=== PATIENT | male | born 1930 | race Two or more races ===

== ENCOUNTER 2022-06-25 19:19 | Inpatient (IN) | payer MEDICARE, OTHER ==
[~2022-06-25] VITALS: Ht 170.2 cm; Wt 75.7 kg
[2022-06-25] MEDS ORDERED: CEFTRIAXONE 1 G in IV DEXTROSE 5% 50 ML IV ONE (19:45)
[2022-06-25] MEDS ORDERED: VANCOMYCIN IV 1,000 MG in IV DEXTROSE 5% 250 ML IV ONE (19:45)
[2022-06-25] MEDS ORDERED: IV NORMAL SALINE 1000 ML BAG IV ONE (19:45)
[2022-06-25 20:17] LABS: MEAN CORPUSCULAR VOLUME 87.8 fL (73.0-96.2); PLATELET COUNT (AUTO) 113 K/uL (152-348)
[2022-06-25 20:26] LABS: CARBON DIOXIDE 26 mmol/L (21-32); CHLORIDE 102 mmol/L (98-107); CREATININE 0.6 mg/dL (0.6-1.3); GLUCOSE 196 mg/dL (74-106); POTASSIUM 3.1 mmol/L (3.5-5.1); UREA NITROGEN, BLOOD 20 mg/dL (7-18)
[2022-06-25] MEDS ORDERED: MERO500P IV (20:30)
[2022-06-25] MEDS ORDERED: ACET-2154 PO (20:30)
[2022-06-25] MEDS ORDERED: TRAZ-257 PO (20:30)
[2022-06-25] MEDS ORDERED: MULT-213 PO (20:30)
[2022-06-25] MEDS ORDERED: CALC500T52 PO (20:30)
[2022-06-25] MEDS ORDERED: FERR325T24 PO (20:30)
[2022-06-25] MEDS ORDERED: CHOL400T28 PO (20:30)
[2022-06-25] MEDS ORDERED: ESCI20TA44 PO (20:30)
[2022-06-25] MEDS ORDERED: BISA10SU61 RC (20:30)
[2022-06-25] MEDS ORDERED: CLON0.1T PO (20:30)
[2022-06-25] MEDS ORDERED: DONE5TAB7 PO (20:30)
[2022-06-25] MEDS ORDERED: MAGN400O6 PO (20:30)
[2022-06-25] MEDS ORDERED: BUSP10TA3 PO (20:30)
[2022-06-25] MEDS ORDERED: NA P133E RC (20:30)
[2022-06-25 20:42] LABS: ALANINE AMINOTRANSFERASE 41 U/L (16-63); ALKALINE PHOSPHATASE 558 U/L (50-136); ASPARTATE AMINOTRANSFERASE 96 U/L (15-37); BILIRUBIN,DIRECT 0.3 mg/dL (0.0-0.2); BILIRUBIN,TOTAL 0.6 mg/dL (0.2-1.0)
[2022-06-25] MEDS ORDERED: CEFTRIAXONE /D5W 50ML IVPB **ER PYXIS IV ONE (20:48)
[2022-06-25] MEDS ORDERED: VANCOMYCIN IV 200 ML ONE (20:48)
[2022-06-25] MEDS ORDERED: POTASSIUM CHLORIDE 200 ML ONE (20:52)
[2022-06-25] MEDS ORDERED: MAGNESIUM SULFATE/D5W 200 ML ONE (20:53)
[2022-06-25 21:09] LABS: THYROID STIMULATING HORMONE 5.386 mIU/mL (0.358-3.740)
[2022-06-25] MEDS: POTASSIUM CHLORIDE 50 ML IV SCH ×4 (21:16→23:45)
[2022-06-25] MEDS: MAGNESIUM SULFATE/D5W 100 ML IV SCH ×2 (21:16→21:45)
[2022-06-25 21:33] LABS: MAGNESIUM 1.8 mg/dL (1.8-2.4)
[2022-06-25] MEDS ORDERED: ENOXAPARIN SODIUM 80 MG/0.8 ML DISP.SYRIN SQ ONE (22:00)
[2022-06-25 22:13] LABS: *BILIRUBIN,URIN 1+ (NEGATIVE); *BLOOD, URINE 2+ (NEGATIVE); *CLARITY,URINE CLEAR (CLEAR); *COLOR,URINE DARK YELLOW (YELLOW); *KETONES,URINE NEGATIVE (NEGATIVE); LEUKOCYTE ESTERASE ,URINE NEGATIVE (NEGATIVE); NITRITE, URINE NEGATIVE (NEGATIVE); PH,URINE 5.5 (5.0-8.0); UGLUCOSE NEGATIVE (NEGATIVE)
[2022-06-25] MEDS ORDERED: DILTIAZEM HCL 25 MG IV IV ONE (23:15)
[2022-06-26] VITALS (9 sets, daily range): BP systolic 112–138; BP diastolic 66–80
[2022-06-26] MEDS ORDERED: ENOXAPARIN SODIUM 80 MG/0.8 ML DISP.SYRIN SQ ONE (00:11)
[2022-06-26] MEDS ORDERED: DILTIAZEM HCL 25 MG IV ONE (00:13)
[2022-06-26 00:43] LABS: BACTERIA,URINE FEW /HPF (NONE SEEN); WBC,URINE NONE SEEN /HPF (0-3)
[2022-06-26 00:44] LABS: CALCIUM OXALATE CRYSTALS,UR MODERATE /HPF (NONE SEEN); SQUAMOUS EPITHELIAL CELL,UR FEW /HPF (NONE SEEN)
[2022-06-26 00:45] LABS: COARSE GRANULAR CASTS,URINE FEW /LPF
[2022-06-26] MEDS ORDERED: IV NS 1000 ML 1,000 ML IV PRN (00:45)
[2022-06-26] MEDS ORDERED: MAGNESIUM HYDROXIDE 30 ML LIQUID UDC PO PRN (01:00)
[2022-06-26] MEDS ORDERED: BISACODYL 10 MG SUPP.RECT RC PRN (01:15)
[2022-06-26] MEDS ORDERED: DONEPEZIL 5 MG TABLET PO ONE (01:30)
[2022-06-26] MEDS ORDERED: PIPERACILLIN/TAZOBACTAM/D5W 50 ML IV ONE (02:53)
[2022-06-26] MEDS ORDERED: REMEDY ESSENTIAL ZINC PASTE 113 GM TOP PRN (03:15)
[2022-06-26] MEDS ORDERED: PIPERACILLIN SODIUM/TAZOBACTAM 3.375 G in IV DEXTROSE 5% 50 ML IV SCH ×2 (06:00→14:00)
[2022-06-26 06:31] LABS: HEMATOCRIT 24.2 % (36.7-47.1); MEAN CORPUSCULAR HEMOGLOBIN 27.7 uug (23.8-33.4); MEAN CORPUSCULAR VOLUME 87.6 fL (73.0-96.2); PLATELET COUNT (AUTO) 77 K/uL (152-348)
[2022-06-26 06:44] LABS: IRON, SERUM 13 ug/dL (50-175)
[2022-06-26 06:54] LABS: ALANINE AMINOTRANSFERASE 28 U/L (16-63); ALKALINE PHOSPHATASE 475 U/L (50-136); ASPARTATE AMINOTRANSFERASE 72 U/L (15-37); BILIRUBIN,TOTAL 0.6 mg/dL (0.2-1.0); CARBON DIOXIDE 25 mmol/L (21-32); CHLORIDE 103 mmol/L (98-107); CREATININE 0.5 mg/dL (0.6-1.3); GLUCOSE 129 mg/dL (74-106); PHOSPHOROUS 2.9 mg/dL (2.5-4.9); POTASSIUM 3.3 mmol/L (3.5-5.1); TOTAL PROTEIN, SERUM 6.6 g/dL (6.4-8.2); UREA NITROGEN, BLOOD 16 mg/dL (7-18)
[2022-06-26] MEDS: ESCITALOPRAM OXALATE 10 MG TABLET PO SCH (08:28)
[2022-06-26] MEDS: CHOLECALCIFEROL 1,000 UNIT TABLET PO SCH (08:28)
[2022-06-26] MEDS: DILTIAZEM HCL 30 MG TABLET PO SCH ×3 (08:28→16:47)
[2022-06-26] MEDS: CALCIUM CARBONATE 500 MG TABLET PO SCH (08:29)
[2022-06-26] MEDS: HEPARIN SODIUM,PORCINE 5,000 UNITS/ML VIAL SQ SCH ×2 (08:30→20:28)
[2022-06-26] MEDS: DONEPEZIL 5 MG TABLET PO SCH (08:32)
[2022-06-26 08:47] LABS: LYMPHOCYTES % (MANUAL) 10 % (20-40); MONOCYTES % (MANUAL) 4 % (2-10); MYELOCYTES % 1 % (0-0); NEUTROPHILS % (MANUAL) 85 % (42-75)
[2022-06-26] MEDS: VANCOMYCIN IV 1,000 MG in IV DEXTROSE 5% 250 ML IV SCH ×2 (08:51→20:26)
[2022-06-26] MEDS ORDERED: busPIRone 5 MG TABLET PO ONE (09:00)
[2022-06-26] MEDS: ENSURE ENLIVE (VAN) 240 ML LIQUID PO SCH ×3 (09:18→16:48)
[2022-06-26] MEDS: PROTEIN SUPPLEMENT (PROSTAT) 30 ML LIQUID PO SCH ×3 (09:18→16:48)
[2022-06-26] MEDS: ARGININE/GLUTAMINE/CALCIUM BMB 1 EACH POWD.PACK PO SCH ×2 (09:18→16:48)
[2022-06-26] MEDS: DILTIAZEM HCL 25 MG IV IV PRN ×2 (10:27→17:26)
[2022-06-26] MEDS: PIPERACILLIN SODIUM/TAZOBACTAM 3.375 G in IV DEXTROSE 5% 100 ML IV SCH ×2 (12:41→18:44)
[2022-06-26] MEDS: ONDANSETRON 4 MG/2 ML VIAL IV PRN (15:22)
[2022-06-26] MEDS ORDERED: FUROSEMIDE 20 MG/2 ML VIAL IV ONE (16:30)
[2022-06-27] VITALS: BP 128/74
[2022-06-27] MEDS: PIPERACILLIN SODIUM/TAZOBACTAM 3.375 G in IV DEXTROSE 5% 100 ML IV SCH ×3 (03:37→19:58)
[2022-06-27 04:00] VITALS: BP 116/80
[2022-06-27 06:14] LABS: ABG BASE EXCESS 1.5 mmol/L; ABG HCO3 24.3 mmol/L; ABG PCO2 30.9 mmHg (35.0-45.0); ABG PH 7.514 (7.350-7.450); ABG PO2 96.5 mmHg (75.0-100.0); ABG SITE RIGHT RADIAL; ABG TOTAL HEMOGLOBIN 7.7 G/dL (13.5-18.0); COHb 1.1 % (0.5-1.5); MetHb 0.2 % (0.0-1.5); O2Hb 96.2 % (94.0-97.0); VENT MODE Nasal Cannula
[2022-06-27 06:50] LABS: HEMATOCRIT 25.5 % (36.7-47.1); MEAN CORPUSCULAR HEMOGLOBIN 27.8 uug (23.8-33.4); MEAN CORPUSCULAR VOLUME 88.1 fL (73.0-96.2); PLATELET COUNT (AUTO) 61 K/uL (152-348)
[2022-06-27 07:29] LABS: CARBON DIOXIDE 26 mmol/L (21-32); CHLORIDE 102 mmol/L (98-107); CREATININE 0.5 mg/dL (0.6-1.3); GLUCOSE 115 mg/dL (74-106); MAGNESIUM 1.8 mg/dL (1.8-2.4); PHOSPHOROUS 3.1 mg/dL (2.5-4.9); POTASSIUM 2.9 mmol/L (3.5-5.1); UREA NITROGEN, BLOOD 22 mg/dL (7-18)
[2022-06-27 07:47] VITALS: BP 132/76
[2022-06-27 07:59] LABS: VANCOMYCIN,TROUGH 20.4 ug/mL (12.0-20.0)
[2022-06-27] MEDS: ENSURE ENLIVE (VAN) 240 ML LIQUID PO SCH ×3 (08:15→17:31)
[2022-06-27] MEDS: PROTEIN SUPPLEMENT (PROSTAT) 30 ML LIQUID PO SCH ×3 (08:17→17:30)
[2022-06-27] MEDS: DILTIAZEM HCL 30 MG TABLET PO SCH ×3 (08:18→17:29)
[2022-06-27] MEDS: CALCIUM CARBONATE 500 MG TABLET PO SCH (08:19)
[2022-06-27] MEDS: CHOLECALCIFEROL 1,000 UNIT TABLET PO SCH (08:19)
[2022-06-27] MEDS: DONEPEZIL 5 MG TABLET PO SCH (08:19)
[2022-06-27] MEDS: ARGININE/GLUTAMINE/CALCIUM BMB 1 EACH POWD.PACK PO SCH ×2 (08:22→17:00)
[2022-06-27] MEDS: ESCITALOPRAM OXALATE 10 MG TABLET PO SCH (08:22)
[2022-06-27] MEDS ORDERED: POTASSIUM CHLORIDE 20 MEQ POWDER PACKET PO ONE ×2 (10:00→13:00)
[2022-06-27 11:22] VITALS: BP 132/73
[2022-06-27] MEDS ORDERED: POTASSIUM CHLORIDE 20 MEQ POWDER PACKET GT SCH (13:00)
[2022-06-27 15:13] LABS: BAND % (MANUAL) 2 % (0-10); LYMPHOCYTES % (MANUAL) 12 % (20-40)
[2022-06-27 15:14] LABS: MONOCYTES % (MANUAL) 8 % (2-10)
[2022-06-27 15:16] LABS: NEUTROPHILS % (MANUAL) 78 % (42-75)
[2022-06-27 15:20] VITALS: BP 136/78
[2022-06-27] MEDS: VANCOMYCIN IV 1,000 MG in IV DEXTROSE 5% 250 ML IV SCH (17:30)
[2022-06-27 20:33] VITALS: BP 132/69
[2022-06-27] MEDS: MELATONIN 3 MG TABLET PO PRN (22:20)
[2022-06-27] MEDS: ACETAMINOPHEN 325 MG TABLET PO PRN (22:20)
[2022-06-28 00:25] VITALS: BP 124/67
[2022-06-28] MEDS: PIPERACILLIN SODIUM/TAZOBACTAM 3.375 G in IV DEXTROSE 5% 100 ML IV SCH ×3 (02:36→19:11)
[2022-06-28 04:11] VITALS: BP 128/73
[2022-06-28 06:56] LABS: HEMATOCRIT 24.8 % (36.7-47.1); MEAN CORPUSCULAR HEMOGLOBIN 27.8 uug (23.8-33.4); MEAN CORPUSCULAR VOLUME 88.9 fL (73.0-96.2); PLATELET COUNT (AUTO) 75 K/uL (152-348)
[2022-06-28 07:41] VITALS: BP 131/75
[2022-06-28 07:47] LABS: CARBON DIOXIDE 27 mmol/L (21-32); CHLORIDE 102 mmol/L (98-107); CREATININE 0.5 mg/dL (0.6-1.3); GLUCOSE 114 mg/dL (74-106); MAGNESIUM 1.9 mg/dL (1.8-2.4); PHOSPHOROUS 3.2 mg/dL (2.5-4.9); POTASSIUM 3.3 mmol/L (3.5-5.1); UREA NITROGEN, BLOOD 24 mg/dL (7-18)
[2022-06-28] MEDS: CALCIUM CARBONATE 500 MG TABLET PO SCH (08:29)
[2022-06-28] MEDS: CHOLECALCIFEROL 1,000 UNIT TABLET PO SCH (08:29)
[2022-06-28] MEDS: DONEPEZIL 5 MG TABLET PO SCH (08:30)
[2022-06-28] MEDS: ESCITALOPRAM OXALATE 10 MG TABLET PO SCH (08:30)
[2022-06-28] MEDS: DILTIAZEM HCL 30 MG TABLET PO SCH ×3 (08:32→16:51)
[2022-06-28] MEDS: ENSURE ENLIVE (VAN) 240 ML LIQUID PO SCH ×3 (08:33→17:10)
[2022-06-28] MEDS: PROTEIN SUPPLEMENT (PROSTAT) 30 ML LIQUID PO SCH ×3 (08:33→16:52)
[2022-06-28] MEDS: ARGININE/GLUTAMINE/CALCIUM BMB 1 EACH POWD.PACK PO SCH ×2 (08:34→16:51)
[2022-06-28] MEDS ORDERED: POTASSIUM CHLORIDE 20 MEQ POWDER PACKET PO ONE ×2 (09:30→15:30)
[2022-06-28] MEDS: VANCOMYCIN IV 1,000 MG in IV DEXTROSE 5% 250 ML IV SCH (09:56)
[2022-06-28 11:39] VITALS: BP 148/73
[2022-06-28 16:00] VITALS: BP 143/68
[2022-06-28 20:00] VITALS: BP 121/80
[2022-06-28] MEDS: ACETAMINOPHEN 325 MG TABLET PO PRN (20:24)
[2022-06-28] MEDS ORDERED: MAGNESIUM HYDROXIDE 30 ML LIQUID UDC PO PRN (22:00)
[2022-06-28] MEDS ORDERED: FLEET ENEMA 133 ML BOTTLE RC PRN (22:00)
[2022-06-28] MEDS ORDERED: BISACODYL 10 MG SUPP.RECT RC PRN (22:00)
[2022-06-28] MEDS: TRAZODONE 50 MG TABLET PO SCH (22:24)
[2022-06-28] MEDS: ESCITALOPRAM OXALATE 10 MG TABLET NG SCH (22:25)
[2022-06-29] VITALS: BP 118/59
[2022-06-29] MEDS: VANCOMYCIN IV 1,000 MG in IV DEXTROSE 5% 250 ML IV SCH ×2 (01:06→17:41)
[2022-06-29] MEDS: PIPERACILLIN SODIUM/TAZOBACTAM 3.375 G in IV DEXTROSE 5% 100 ML IV SCH ×3 (03:06→18:46)
[2022-06-29 04:00] VITALS: BP 131/67
[2022-06-29 07:23] LABS: HEMATOCRIT 22.9 % (36.7-47.1); MEAN CORPUSCULAR HEMOGLOBIN 28.8 uug (23.8-33.4); MEAN CORPUSCULAR VOLUME 88.2 fL (73.0-96.2); PLATELET COUNT (AUTO) 87 K/uL (152-348)
[2022-06-29 07:53] LABS: CREATININE 0.6 mg/dL (0.6-1.3); POTASSIUM 3.6 mmol/L (3.5-5.1)
[2022-06-29] MEDS ORDERED: CHOLECALCIFEROL 400 UNITS TABLET PO SCH (09:00)
[2022-06-29] MEDS ORDERED: CALCIUM CARBONATE 500 MG TABLET PO SCH (09:00)
[2022-06-29] MEDS: MULTIVIT, IRON, MIN NO. 8, FA TABLET PO SCH (09:01)
[2022-06-29] MEDS: FERROUS SULFATE 325 MG TABEC PO SCH ×2 (09:01→17:08)
[2022-06-29] MEDS: CHOLECALCIFEROL 1,000 UNIT TABLET PO SCH (09:01)
[2022-06-29] MEDS: PROTEIN SUPPLEMENT (PROSTAT) 30 ML LIQUID PO SCH ×3 (09:02→17:09)
[2022-06-29] MEDS: busPIRone 10 MG TABLET PO SCH ×2 (09:02→17:08)
[2022-06-29] MEDS: ENSURE ENLIVE (VAN) 240 ML LIQUID PO SCH ×3 (09:02→17:10)
[2022-06-29] MEDS: CALCIUM CARBONATE 500 MG TABLET PO SCH (09:02)
[2022-06-29] MEDS: DILTIAZEM HCL 30 MG TABLET PO SCH ×3 (09:03→17:08)
[2022-06-29] MEDS: ARGININE/GLUTAMINE/CALCIUM BMB 1 EACH POWD.PACK PO SCH ×2 (09:03→17:09)
[2022-06-29] MEDS: CLONIDINE HCL 0.1 MG TABLET PO SCH (09:03)
[2022-06-29 11:41] VITALS: BP 119/59
[2022-06-29 15:41] VITALS: BP 117/69
[2022-06-29] MEDS ORDERED: NUTR1PAC14 PO (17:01)
[2022-06-29] MEDS ORDERED: PIPE3.379 IV (17:01)
[2022-06-29] MEDS ORDERED: CHOL100062 PO (17:01)
[2022-06-29] MEDS ORDERED: DILT30TA35 PO (17:01)
[2022-06-29] MEDS ORDERED: CALC500T53 PO (17:01)
[2022-06-29] MEDS ORDERED: Lactose-Free Food PO (17:01)
[2022-06-29] MEDS ORDERED: MELA3TAB41 PO (17:01)
[2022-06-29] MEDS ORDERED: PROT30LI PO (17:01)
[2022-06-29] MEDS ORDERED: CLOT30CR24 TOP (17:01)
[2022-06-29] MEDS ORDERED: BISA10SU12 RC (17:01)
[2022-06-29] MEDS ORDERED: DILT5VIA9 IV (17:01)
[2022-06-29] MEDS ORDERED: ONDA4VIA23 PO (17:01)
[2022-06-29] MEDS: CLOTRIMAZOLE 1% CREAM 30 GM TUBE TOP SCH (17:09)
[2022-06-29] MEDS: ESCITALOPRAM OXALATE 10 MG TABLET NG SCH (17:12)
[2022-06-29 20:00] VITALS: BP 135/61
[2022-06-29] MEDS: TRAZODONE 50 MG TABLET PO SCH (20:39)
[2022-06-29] MEDS: DONEPEZIL 5 MG TABLET PO SCH (20:40)
[2022-06-30] VITALS (11 sets, daily range): BP systolic 109–168; BP diastolic 30–77
[2022-06-30] MEDS: PIPERACILLIN SODIUM/TAZOBACTAM 3.375 G in IV DEXTROSE 5% 100 ML IV SCH ×3 (02:56→18:07)
[2022-06-30 07:22] LABS: CARBON DIOXIDE 29 mmol/L (21-32); CHLORIDE 104 mmol/L (98-107); CREATININE 0.4 mg/dL (0.6-1.3); GLUCOSE 127 mg/dL (74-106); MAGNESIUM 1.7 mg/dL (1.8-2.4); PHOSPHOROUS 2.8 mg/dL (2.5-4.9); POTASSIUM 3.3 mmol/L (3.5-5.1); UREA NITROGEN, BLOOD 19 mg/dL (7-18)
[2022-06-30 08:14] LABS: HEMATOCRIT 22.1 % (36.7-47.1); MEAN CORPUSCULAR HEMOGLOBIN 28.5 uug (23.8-33.4); MEAN CORPUSCULAR VOLUME 87.8 fL (73.0-96.2); PLATELET COUNT (AUTO) 88 K/uL (152-348)
[2022-06-30] MEDS: FERROUS SULFATE 325 MG TABEC PO SCH ×2 (08:44→17:26)
[2022-06-30] MEDS: busPIRone 10 MG TABLET PO SCH ×2 (08:44→17:26)
[2022-06-30] MEDS: CHOLECALCIFEROL 1,000 UNIT TABLET PO SCH (08:45)
[2022-06-30] MEDS: MULTIVIT, IRON, MIN NO. 8, FA TABLET PO SCH (08:45)
[2022-06-30] MEDS: CALCIUM CARBONATE 500 MG TABLET PO SCH (08:45)
[2022-06-30] MEDS: CLONIDINE HCL 0.1 MG TABLET PO SCH (08:45)
[2022-06-30] MEDS: DILTIAZEM HCL 30 MG TABLET PO SCH ×3 (08:45→17:25)
[2022-06-30] MEDS: ARGININE/GLUTAMINE/CALCIUM BMB 1 EACH POWD.PACK PO SCH ×2 (08:46→16:48)
[2022-06-30] MEDS: PROTEIN SUPPLEMENT (PROSTAT) 30 ML LIQUID PO SCH ×3 (08:46→16:48)
[2022-06-30] MEDS: ENSURE ENLIVE (VAN) 240 ML LIQUID PO SCH ×3 (08:46→16:49)
[2022-06-30] MEDS: CLOTRIMAZOLE 1% CREAM 30 GM TUBE TOP SCH ×2 (08:47→16:48)
[2022-06-30] MEDS: VANCOMYCIN IV 1,000 MG in IV DEXTROSE 5% 250 ML IV SCH (09:15)
[2022-06-30] MEDS ORDERED: MAGNESIUM OXIDE 400 MG TABLET PO ONE (09:45)
[2022-06-30] MEDS ORDERED: POTASSIUM CHLORIDE 20 MEQ POWDER PACKET PO ONE (09:45)
[2022-06-30] MEDS: LEVALBUTEROL HCL NEB 0.63 MG/3 ML NEBU NEB PRN (14:49)
[2022-06-30] MEDS: IPRATROPIUM BROMIDE 0.5 MG/2.5 ML NEBU NEB PRN (14:49)
[2022-06-30] MEDS: ESCITALOPRAM OXALATE 10 MG TABLET NG SCH (17:26)
[2022-06-30] MEDS: TRAZODONE 50 MG TABLET PO SCH (20:10)
[2022-06-30] MEDS: DONEPEZIL 5 MG TABLET PO SCH (20:10)
[2022-07-01] VITALS (7 sets, daily range): BP systolic 99–129; BP diastolic 42–69
[2022-07-01] MEDS: VANCOMYCIN IV 1,000 MG in IV DEXTROSE 5% 250 ML IV SCH ×2 (01:15→18:17)
[2022-07-01] MEDS: MELATONIN 3 MG TABLET PO PRN (01:22)
[2022-07-01] MEDS: IPRATROPIUM BROMIDE 0.5 MG/2.5 ML NEBU NEB PRN ×2 (02:43→13:52)
[2022-07-01] MEDS: LEVALBUTEROL HCL NEB 0.63 MG/3 ML NEBU NEB PRN ×2 (02:44→13:52)
[2022-07-01] MEDS: PIPERACILLIN SODIUM/TAZOBACTAM 3.375 G in IV DEXTROSE 5% 100 ML IV SCH ×3 (03:18→20:34)
[2022-07-01 06:49] LABS: HEMATOCRIT 23.9 % (36.7-47.1); MEAN CORPUSCULAR HEMOGLOBIN 28.7 uug (23.8-33.4); MEAN CORPUSCULAR VOLUME 86.1 fL (73.0-96.2); PLATELET COUNT (AUTO) 109 K/uL (152-348)
[2022-07-01 07:38] LABS: CARBON DIOXIDE 29 mmol/L (21-32); CHLORIDE 104 mmol/L (98-107); CREATININE 0.5 mg/dL (0.6-1.3); GLUCOSE 152 mg/dL (74-106); POTASSIUM 3.4 mmol/L (3.5-5.1); UREA NITROGEN, BLOOD 23 mg/dL (7-18)
[2022-07-01] MEDS: busPIRone 10 MG TABLET PO SCH ×2 (10:14→17:00)
[2022-07-01] MEDS: CLONIDINE HCL 0.1 MG TABLET PO SCH (10:14)
[2022-07-01] MEDS: CHOLECALCIFEROL 1,000 UNIT TABLET PO SCH (10:14)
[2022-07-01] MEDS: FERROUS SULFATE 325 MG TABEC PO SCH ×2 (10:15→17:00)
[2022-07-01] MEDS: MULTIVIT, IRON, MIN NO. 8, FA TABLET PO SCH (10:15)
[2022-07-01] MEDS: DILTIAZEM HCL 30 MG TABLET PO SCH ×3 (10:15→17:00)
[2022-07-01] MEDS: CALCIUM CARBONATE 500 MG TABLET PO SCH (10:15)
[2022-07-01] MEDS: ENSURE ENLIVE (VAN) 240 ML LIQUID PO SCH ×3 (10:20→18:00)
[2022-07-01] MEDS: PROTEIN SUPPLEMENT (PROSTAT) 30 ML LIQUID PO SCH ×3 (10:20→17:00)
[2022-07-01] MEDS: ARGININE/GLUTAMINE/CALCIUM BMB 1 EACH POWD.PACK PO SCH ×2 (10:20→17:00)
[2022-07-01] MEDS: CLOTRIMAZOLE 1% CREAM 30 GM TUBE TOP SCH ×2 (10:21→17:00)
[2022-07-01] MEDS ORDERED: POTASSIUM CHLORIDE 20 MEQ TAB.PRT.SR PO ONE (10:30)
[2022-07-01 13:55] LABS: ABG BASE EXCESS 1.4 mmol/L; ABG PCO2 35.2 mmHg (35.0-45.0); ABG PH 7.469 (7.350-7.450); ABG PO2 47.1 mmHg (75.0-100.0); ABG SITE RIGHT BRACHIAL; ABG TOTAL HEMOGLOBIN 9.7 G/dL (13.5-18.0); COHb 1.8 % (0.5-1.5); MetHb 0.2 % (0.0-1.5); O2Hb 81.2 % (94.0-97.0); VENT MODE Nasal Cannula
[2022-07-01] MEDS: DILTIAZEM HCL 25 MG IV IV PRN (14:06)
[2022-07-01] MEDS: ESCITALOPRAM OXALATE 10 MG TABLET NG SCH (18:00)
[2022-07-01] MEDS: IPRATROPIUM BROMIDE 0.5 MG/2.5 ML NEBU NEB SCH (20:10)
[2022-07-01] MEDS: DONEPEZIL 5 MG TABLET PO SCH (21:00)
[2022-07-01] MEDS: TRAZODONE 50 MG TABLET PO SCH (21:00)
[2022-07-02] MEDS: DILTIAZEM HCL 25 MG IV IV PRN
[2022-07-02] MEDS: ONDANSETRON 4 MG/2 ML VIAL IV PRN
[2022-07-02] MEDS: IPRATROPIUM BROMIDE 0.5 MG/2.5 ML NEBU NEB SCH ×4 (01:24→19:59)
[2022-07-02] MEDS: PIPERACILLIN SODIUM/TAZOBACTAM 3.375 G in IV DEXTROSE 5% 100 ML IV SCH ×3 (03:09→18:28)
[2022-07-02 05:03] VITALS: BP 119/63
[2022-07-02] MEDS: PROTEIN SUPPLEMENT (PROSTAT) 30 ML LIQUID PO SCH ×3 (08:00→16:38)
[2022-07-02] MEDS: ENSURE ENLIVE (VAN) 240 ML LIQUID PO SCH ×3 (08:00→16:40)
[2022-07-02] MEDS: CALCIUM CARBONATE 500 MG TABLET PO SCH (09:00)
[2022-07-02] MEDS: MULTIVIT, IRON, MIN NO. 8, FA TABLET PO SCH (09:00)
[2022-07-02] MEDS: FERROUS SULFATE 325 MG TABEC PO SCH ×2 (09:00→16:38)
[2022-07-02] MEDS: busPIRone 10 MG TABLET PO SCH ×2 (09:00→16:38)
[2022-07-02] MEDS: ARGININE/GLUTAMINE/CALCIUM BMB 1 EACH POWD.PACK PO SCH ×2 (09:00→16:38)
[2022-07-02] MEDS: CHOLECALCIFEROL 1,000 UNIT TABLET PO SCH (09:00)
[2022-07-02 09:19] LABS: CREATININE 0.7 mg/dL (0.6-1.3); POTASSIUM 3.9 mmol/L (3.5-5.1)
[2022-07-02] MEDS: CLOTRIMAZOLE 1% CREAM 30 GM TUBE TOP SCH ×2 (09:28→16:40)
[2022-07-02] MEDS: DILTIAZEM HCL 30 MG TABLET PO SCH ×3 (09:29→16:38)
[2022-07-02] MEDS: CLONIDINE HCL 0.1 MG TABLET PO SCH (09:30)
[2022-07-02] MEDS: VANCOMYCIN IV 1,000 MG in IV DEXTROSE 5% 250 ML IV SCH (11:19)
[2022-07-02 11:54] VITALS: BP 103/56
[2022-07-02 15:33] LABS: HEMATOCRIT 25.6 % (36.7-47.1); MEAN CORPUSCULAR HEMOGLOBIN 27.8 uug (23.8-33.4); MEAN CORPUSCULAR VOLUME 87.6 fL (73.0-96.2); PLATELET COUNT (AUTO) 130 K/uL (152-348)
[2022-07-02 15:41] LABS: CREATININE 0.7 mg/dL (0.6-1.3); POTASSIUM 3.6 mmol/L (3.5-5.1)
[2022-07-02 16:37] VITALS: BP 97/51
[2022-07-02] MEDS: ESCITALOPRAM OXALATE 10 MG TABLET NG SCH (16:40)
[2022-07-02] MEDS ORDERED: ALBUTEROL SULFATE 8 GM HFA.AER.AD ONE (17:00)
[2022-07-02 17:40] VITALS: BP 117/57
[2022-07-02] MEDS: DONEPEZIL 5 MG TABLET PO SCH (20:27)
[2022-07-02] MEDS: TRAZODONE 50 MG TABLET PO SCH (20:27)
[2022-07-02 20:46] VITALS: BP 101/59
[2022-07-03 00:05] VITALS: BP 106/62
[2022-07-03] MEDS: VANCOMYCIN IV 1,000 MG in IV DEXTROSE 5% 250 ML IV SCH ×2 (01:53→18:00)
[2022-07-03] MEDS: IPRATROPIUM BROMIDE 0.5 MG/2.5 ML NEBU NEB SCH ×4 (02:18→20:18)
[2022-07-03] MEDS: PIPERACILLIN SODIUM/TAZOBACTAM 3.375 G in IV DEXTROSE 5% 100 ML IV SCH ×3 (02:44→18:08)
[2022-07-03] MEDS: DILTIAZEM HCL 25 MG IV IV PRN ×2 (02:48→20:55)
[2022-07-03] MEDS: ACETAMINOPHEN 325 MG TABLET PO PRN (03:24)
[2022-07-03 04:45] VITALS: BP 114/67
[2022-07-03 07:20] LABS: HEMATOCRIT 25.2 % (36.7-47.1); MEAN CORPUSCULAR HEMOGLOBIN 29.2 uug (23.8-33.4); MEAN CORPUSCULAR VOLUME 87.4 fL (73.0-96.2); PLATELET COUNT (AUTO) 96 K/uL (152-348)
[2022-07-03 07:45] LABS: CREATININE 0.7 mg/dL (0.6-1.3); PHOSPHOROUS 4.6 mg/dL (2.5-4.9); POTASSIUM 3.5 mmol/L (3.5-5.1)
[2022-07-03] MEDS: ENSURE ENLIVE (VAN) 240 ML LIQUID PO SCH ×3 (08:00→16:18)
[2022-07-03] MEDS: busPIRone 10 MG TABLET PO SCH ×2 (08:40→16:55)
[2022-07-03] MEDS: CHOLECALCIFEROL 1,000 UNIT TABLET PO SCH (08:40)
[2022-07-03] MEDS: MULTIVIT, IRON, MIN NO. 8, FA TABLET PO SCH (08:40)
[2022-07-03] MEDS: FERROUS SULFATE 325 MG TABEC PO SCH ×2 (08:40→16:55)
[2022-07-03] MEDS: CALCIUM CARBONATE 500 MG TABLET PO SCH (08:41)
[2022-07-03] MEDS: DILTIAZEM HCL 30 MG TABLET PO SCH ×3 (08:46→16:55)
[2022-07-03] MEDS: CLONIDINE HCL 0.1 MG TABLET PO SCH (08:46)
[2022-07-03] MEDS: PROTEIN SUPPLEMENT (PROSTAT) 30 ML LIQUID PO SCH ×3 (08:55→16:16)
[2022-07-03] MEDS: ARGININE/GLUTAMINE/CALCIUM BMB 1 EACH POWD.PACK PO SCH ×2 (08:56→16:16)
[2022-07-03] MEDS: CLOTRIMAZOLE 1% CREAM 30 GM TUBE TOP SCH ×2 (08:57→16:18)
[2022-07-03 11:59] VITALS: BP 101/58
[2022-07-03] MEDS: SOD FERRIC GLUC COMPLX/SUCROSE 125 MG in IV NORMAL SALINE 100 ML IV SCH (14:36)
[2022-07-03 16:05] VITALS: BP 99/54
[2022-07-03] MEDS: ESCITALOPRAM OXALATE 10 MG TABLET NG SCH (18:12)
[2022-07-03 20:40] VITALS: BP 97/41
[2022-07-03] MEDS: TRAZODONE 50 MG TABLET PO SCH (21:10)
[2022-07-03] MEDS: DONEPEZIL 5 MG TABLET PO SCH (21:10)
[2022-07-04 00:14] VITALS: BP 113/57
[2022-07-04] MEDS: IPRATROPIUM BROMIDE 0.5 MG/2.5 ML NEBU NEB SCH ×4 (02:20→19:42)
[2022-07-04] MEDS: PIPERACILLIN SODIUM/TAZOBACTAM 3.375 G in IV DEXTROSE 5% 100 ML IV SCH ×3 (03:07→18:38)
[2022-07-04 04:00] VITALS: BP 104/60
[2022-07-04 07:35] LABS: HEMATOCRIT 29.3 % (36.7-47.1); MEAN CORPUSCULAR HEMOGLOBIN 28.7 uug (23.8-33.4); MEAN CORPUSCULAR VOLUME 88.1 fL (73.0-96.2); PLATELET COUNT (AUTO) 110 K/uL (152-348)
[2022-07-04 07:36] VITALS: BP 102/57
[2022-07-04 07:52] LABS: CARBON DIOXIDE 28 mmol/L (21-32); CHLORIDE 102 mmol/L (98-107); CREATININE 0.9 mg/dL (0.6-1.3); GLUCOSE 75 mg/dL (74-106); MAGNESIUM 2.1 mg/dL (1.8-2.4); POTASSIUM 3.4 mmol/L (3.5-5.1); UREA NITROGEN, BLOOD 30 mg/dL (7-18)
[2022-07-04] MEDS: ENSURE ENLIVE (VAN) 240 ML LIQUID PO SCH ×3 (08:00→17:45)
[2022-07-04] MEDS: PROTEIN SUPPLEMENT (PROSTAT) 30 ML LIQUID PO SCH ×3 (08:00→17:00)
[2022-07-04] MEDS: CALCIUM CARBONATE 500 MG TABLET PO SCH (08:56)
[2022-07-04] MEDS: FERROUS SULFATE 325 MG TABEC PO SCH ×2 (08:56→17:43)
[2022-07-04] MEDS: busPIRone 10 MG TABLET PO SCH ×2 (08:56→17:43)
[2022-07-04] MEDS: CHOLECALCIFEROL 1,000 UNIT TABLET PO SCH (08:56)
[2022-07-04] MEDS: MULTIVIT, IRON, MIN NO. 8, FA TABLET PO SCH (08:56)
[2022-07-04] MEDS: DILTIAZEM HCL 30 MG TABLET PO SCH ×3 (08:57→17:44)
[2022-07-04] MEDS: CLOTRIMAZOLE 1% CREAM 30 GM TUBE TOP SCH ×2 (08:58→17:44)
[2022-07-04] MEDS: CLONIDINE HCL 0.1 MG TABLET PO SCH (09:00)
[2022-07-04] MEDS: ARGININE/GLUTAMINE/CALCIUM BMB 1 EACH POWD.PACK PO SCH ×2 (09:00→17:00)
[2022-07-04] MEDS: POTASSIUM CHLORIDE 50 ML IV SCH ×2 (11:49→12:54)
[2022-07-04 12:00] VITALS: BP 102/57
[2022-07-04] MEDS: SOD FERRIC GLUC COMPLX/SUCROSE 125 MG in IV NORMAL SALINE 100 ML IV SCH (14:11)
[2022-07-04] MEDS ORDERED: POTASSIUM CHLORIDE 20 MEQ POWDER PACKET PO ONE (15:15)
[2022-07-04 16:00] VITALS: BP 107/56
[2022-07-04] MEDS: ESCITALOPRAM OXALATE 10 MG TABLET NG SCH (17:43)
[2022-07-04 19:59] VITALS: BP 98/50
[2022-07-04] MEDS: TRAZODONE 50 MG TABLET PO SCH (21:56)
[2022-07-04] MEDS: DONEPEZIL 5 MG TABLET PO SCH (21:56)
[2022-07-05 00:25] VITALS: BP 100/51
[2022-07-05] MEDS: IPRATROPIUM BROMIDE 0.5 MG/2.5 ML NEBU NEB SCH ×4 (01:16→21:04)
[2022-07-05] MEDS: PIPERACILLIN SODIUM/TAZOBACTAM 3.375 G in IV DEXTROSE 5% 100 ML IV SCH ×3 (03:00→18:12)
[2022-07-05 04:10] VITALS: BP 109/63
[2022-07-05 07:11] LABS: HEMATOCRIT 26.7 % (36.7-47.1); MEAN CORPUSCULAR HEMOGLOBIN 28.7 uug (23.8-33.4); MEAN CORPUSCULAR VOLUME 88.9 fL (73.0-96.2); PLATELET COUNT (AUTO) 85 K/uL (152-348)
[2022-07-05 07:33] LABS: PHOSPHOROUS 4.8 mg/dL (2.5-4.9)
[2022-07-05] MEDS: ENSURE ENLIVE (VAN) 240 ML LIQUID PO SCH ×3 (08:00→16:45)
[2022-07-05] MEDS: FERROUS SULFATE 325 MG TABEC PO SCH ×2 (08:50→16:43)
[2022-07-05] MEDS: CALCIUM CARBONATE 500 MG TABLET PO SCH (08:50)
[2022-07-05] MEDS: DILTIAZEM HCL 30 MG TABLET PO SCH ×3 (08:50→16:44)
[2022-07-05] MEDS: busPIRone 10 MG TABLET PO SCH ×2 (08:50→16:43)
[2022-07-05] MEDS: MULTIVIT, IRON, MIN NO. 8, FA TABLET PO SCH (08:50)
[2022-07-05] MEDS: CHOLECALCIFEROL 1,000 UNIT TABLET PO SCH (08:50)
[2022-07-05] MEDS: ARGININE/GLUTAMINE/CALCIUM BMB 1 EACH POWD.PACK PO SCH ×2 (08:56→16:44)
[2022-07-05] MEDS: CLONIDINE HCL 0.1 MG TABLET PO SCH (08:57)
[2022-07-05] MEDS: PROTEIN SUPPLEMENT (PROSTAT) 30 ML LIQUID PO SCH ×3 (08:57→16:45)
[2022-07-05] MEDS: CLOTRIMAZOLE 1% CREAM 30 GM TUBE TOP SCH ×2 (08:58→16:46)
[2022-07-05] MEDS ORDERED: VANCOMYCIN IV 500 MG in IV DEXTROSE 5% 100 ML IV ONE (09:00)
[2022-07-05 11:13] VITALS: BP 103/56
[2022-07-05] MEDS: SOD FERRIC GLUC COMPLX/SUCROSE 125 MG in IV NORMAL SALINE 100 ML IV SCH (14:04)
[2022-07-05] MEDS: VITAL AF 1.2 1,000 ML LIQUID GT PRN (14:05)
[2022-07-05 15:16] VITALS: BP 129/60
[2022-07-05] MEDS: ESCITALOPRAM OXALATE 10 MG TABLET NG SCH (17:10)
[2022-07-05 20:00] VITALS: BP 113/31
[2022-07-05] MEDS ORDERED: VANCOMYCIN IV 1,000 MG in IV DEXTROSE 5% 250 ML IV SCH (21:00)
[2022-07-05] MEDS: DONEPEZIL 5 MG TABLET PO SCH (21:25)
[2022-07-05] MEDS: TRAZODONE 50 MG TABLET PO SCH (21:25)
[2022-07-05] MEDS: ACETAMINOPHEN 325 MG TABLET PO PRN (21:25)
[2022-07-06] VITALS: BP 122/41
[2022-07-06] MEDS: IPRATROPIUM BROMIDE 0.5 MG/2.5 ML NEBU NEB SCH ×4 (01:43→19:39)
[2022-07-06] MEDS: PIPERACILLIN SODIUM/TAZOBACTAM 3.375 G in IV DEXTROSE 5% 100 ML IV SCH ×2 (02:48→10:00)
[2022-07-06 04:00] VITALS: BP 101/41
[2022-07-06 07:04] LABS: HEMATOCRIT 27.4 % (36.7-47.1); MEAN CORPUSCULAR HEMOGLOBIN 28.6 uug (23.8-33.4); MEAN CORPUSCULAR VOLUME 89.3 fL (73.0-96.2); PLATELET COUNT (AUTO) 93 K/uL (152-348)
[2022-07-06 07:23] LABS: CREATININE 1.3 mg/dL (0.6-1.3)
[2022-07-06] MEDS: CALCIUM CARBONATE 500 MG TABLET PO SCH (09:44)
[2022-07-06] MEDS: FERROUS SULFATE 325 MG TABEC PO SCH ×2 (09:44→17:05)
[2022-07-06] MEDS: MULTIVIT, IRON, MIN NO. 8, FA TABLET PO SCH (09:44)
[2022-07-06] MEDS: busPIRone 10 MG TABLET PO SCH ×2 (09:44→17:05)
[2022-07-06] MEDS: ACETAMINOPHEN 325 MG TABLET PO PRN ×2 (09:45→20:21)
[2022-07-06] MEDS: DILTIAZEM HCL 30 MG TABLET PO SCH ×3 (09:45→16:32)
[2022-07-06] MEDS: CHOLECALCIFEROL 1,000 UNIT TABLET PO SCH (09:45)
[2022-07-06] MEDS: PROTEIN SUPPLEMENT (PROSTAT) 30 ML LIQUID PO SCH ×3 (09:46→16:29)
[2022-07-06] MEDS: ENSURE ENLIVE (VAN) 240 ML LIQUID PO SCH ×3 (09:46→17:06)
[2022-07-06] MEDS: CLONIDINE HCL 0.1 MG TABLET PO SCH (09:46)
[2022-07-06] MEDS: CLOTRIMAZOLE 1% CREAM 30 GM TUBE TOP SCH ×2 (09:47→16:30)
[2022-07-06] MEDS: ARGININE/GLUTAMINE/CALCIUM BMB 1 EACH POWD.PACK PO SCH ×2 (09:47→16:31)
[2022-07-06] MEDS ORDERED: VANCOMYCIN IV 500 MG in IV DEXTROSE 5% 100 ML IV ONE (11:00)
[2022-07-06 11:55] VITALS: BP 97/57
[2022-07-06] MEDS: SOD FERRIC GLUC COMPLX/SUCROSE 125 MG in IV NORMAL SALINE 100 ML IV SCH (14:00)
[2022-07-06 16:00] VITALS: BP 112/40
[2022-07-06] MEDS: ESCITALOPRAM OXALATE 10 MG TABLET NG SCH (17:05)
[2022-07-06] MEDS: PIPERACILLIN SODIUM/TAZOBACTAM 3.375 G in IV DEXTROSE 5% 50 ML IV SCH ×2 (17:07→23:50)
[2022-07-06 20:00] VITALS: BP 114/58
[2022-07-06] MEDS: DONEPEZIL 5 MG TABLET PO SCH (20:21)
[2022-07-06] MEDS: TRAZODONE 50 MG TABLET PO SCH (20:21)
[2022-07-07] VITALS (7 sets, daily range): BP systolic 99–142; BP diastolic 37–60
[2022-07-07] MEDS: IPRATROPIUM BROMIDE 0.5 MG/2.5 ML NEBU NEB SCH ×4 (00:37→20:02)
[2022-07-07] MEDS: PIPERACILLIN SODIUM/TAZOBACTAM 3.375 G in IV DEXTROSE 5% 50 ML IV SCH ×4 (05:55→23:04)
[2022-07-07 06:39] LABS: HEMATOCRIT 26.9 % (36.7-47.1); MEAN CORPUSCULAR HEMOGLOBIN 29.1 uug (23.8-33.4); PLATELET COUNT (AUTO) 69 K/uL (152-348)
[2022-07-07 07:19] LABS: CARBON DIOXIDE 27 mmol/L (21-32); CHLORIDE 103 mmol/L (98-107); CREATININE 1.5 mg/dL (0.6-1.3); GLUCOSE 287 mg/dL (74-106); MAGNESIUM 2.2 mg/dL (1.8-2.4); POTASSIUM 3.6 mmol/L (3.5-5.1); UREA NITROGEN, BLOOD 45 mg/dL (7-18)
[2022-07-07] MEDS: MULTIVIT, IRON, MIN NO. 8, FA TABLET PO SCH (08:55)
[2022-07-07] MEDS: CHOLECALCIFEROL 1,000 UNIT TABLET PO SCH (08:55)
[2022-07-07] MEDS: FERROUS SULFATE 325 MG TABEC PO SCH ×2 (08:55→17:30)
[2022-07-07] MEDS: CALCIUM CARBONATE 500 MG TABLET PO SCH (08:55)
[2022-07-07] MEDS: busPIRone 10 MG TABLET PO SCH ×2 (08:55→17:31)
[2022-07-07] MEDS: DILTIAZEM HCL 30 MG TABLET PO SCH ×3 (08:56→17:30)
[2022-07-07] MEDS: CLONIDINE HCL 0.1 MG TABLET PO SCH (08:56)
[2022-07-07] MEDS: VITAL AF 1.2 1,000 ML LIQUID GT PRN (08:56)
[2022-07-07 08:57] LABS: ABG BASE EXCESS 0.7 mmol/L; ABG HCO3 26.1 mmol/L; ABG PCO2 45.8 mmHg (35.0-45.0); ABG PH 7.374 (7.350-7.450); ABG PO2 86.8 mmHg (75.0-100.0); ABG SITE RIGHT RADIAL; COHb 0.6 % (0.5-1.5); MetHb 0.4 % (0.0-1.5); O2Hb 94.8 % (94.0-97.0)
[2022-07-07] MEDS: ENSURE ENLIVE (VAN) 240 ML LIQUID PO SCH ×3 (08:57→17:31)
[2022-07-07] MEDS: PROTEIN SUPPLEMENT (PROSTAT) 30 ML LIQUID PO SCH ×3 (08:57→17:31)
[2022-07-07] MEDS: CLOTRIMAZOLE 1% CREAM 30 GM TUBE TOP SCH ×2 (08:58→17:30)
[2022-07-07] MEDS: ARGININE/GLUTAMINE/CALCIUM BMB 1 EACH POWD.PACK PO SCH ×2 (08:58→17:31)
[2022-07-07 09:01] LABS: BILIRUBIN,DIRECT 0.4 mg/dL (0.0-0.2); BILIRUBIN,TOTAL 0.5 mg/dL (0.2-1.0)
[2022-07-07] MEDS ORDERED: FUROSEMIDE 20 MG/2 ML VIAL IV ONE (09:30)
[2022-07-07] MEDS ORDERED: VANCOMYCIN IV 500 MG in IV DEXTROSE 5% 100 ML IV ONE (13:00)
[2022-07-07] MEDS: LEVALBUTEROL HCL NEB 0.63 MG/3 ML NEBU NEB PRN (14:04)
[2022-07-07] MEDS ORDERED: FUROSEMIDE 40 MG/4 ML VIAL IV ONE (14:30)
[2022-07-07] MEDS: SOD FERRIC GLUC COMPLX/SUCROSE 125 MG in IV NORMAL SALINE 100 ML IV SCH (15:01)
[2022-07-07 15:02] LABS: LYMPHOCYTES % (MANUAL) 6 % (20-40); MONOCYTES % (MANUAL) 2 % (2-10); NEUTROPHILS % (MANUAL) 92 % (42-75)
[2022-07-07] MEDS: ESCITALOPRAM OXALATE 10 MG TABLET NG SCH (17:30)
[2022-07-07] MEDS: TRAZODONE 50 MG TABLET PO SCH (20:35)
[2022-07-07] MEDS: DONEPEZIL 5 MG TABLET PO SCH (20:35)
[2022-07-07] MEDS: MELATONIN 3 MG TABLET PO PRN (21:43)
[2022-07-07] MEDS: ACETAMINOPHEN 325 MG TABLET PO PRN (21:44)
[2022-07-08] VITALS: BP 116/63
[2022-07-08] MEDS: IPRATROPIUM BROMIDE 0.5 MG/2.5 ML NEBU NEB SCH ×4 (00:33→18:03)
[2022-07-08 04:00] VITALS: BP 100/65
[2022-07-08] MEDS: PIPERACILLIN SODIUM/TAZOBACTAM 3.375 G in IV DEXTROSE 5% 50 ML IV SCH ×3 (05:10→17:05)
[2022-07-08 05:45] LABS: ABG BASE EXCESS 0.4 mmol/L; ABG PCO2 52.7 mmHg (35.0-45.0); ABG PH 7.327 (7.350-7.450); ABG PO2 81.9 mmHg (75.0-100.0); ABG SITE RIGHT RADIAL; ABG TOTAL HEMOGLOBIN 10.4 G/dL (13.5-18.0); COHb 0.6 % (0.5-1.5); MetHb 0.2 % (0.0-1.5); O2Hb 94.4 % (94.0-97.0)
[2022-07-08 06:50] LABS: HEMATOCRIT 25.8 % (36.7-47.1); MEAN CORPUSCULAR VOLUME 89.9 fL (73.0-96.2)
[2022-07-08 06:54] LABS: CARBON DIOXIDE 30 mmol/L (21-32); CHLORIDE 105 mmol/L (98-107); CREATININE 1.4 mg/dL (0.6-1.3); GLUCOSE 242 mg/dL (74-106); MAGNESIUM 2.3 mg/dL (1.8-2.4); PHOSPHOROUS 4.1 mg/dL (2.5-4.9); POTASSIUM 3.1 mmol/L (3.5-5.1); UREA NITROGEN, BLOOD 49 mg/dL (7-18)
[2022-07-08 07:48] LABS: PLATELET COUNT (AUTO) 37 K/uL (152-348)
[2022-07-08 07:51] VITALS: BP 117/68
[2022-07-08] MEDS: ENSURE ENLIVE (VAN) 240 ML LIQUID PO SCH ×3 (08:00→17:06)
[2022-07-08] MEDS: PROTEIN SUPPLEMENT (PROSTAT) 30 ML LIQUID PO SCH ×3 (08:00→16:42)
[2022-07-08] MEDS: FERROUS SULFATE 325 MG TABEC PO SCH (08:44)
[2022-07-08] MEDS: CALCIUM CARBONATE 500 MG TABLET PO SCH (08:44)
[2022-07-08] MEDS: busPIRone 10 MG TABLET PO SCH ×2 (08:44→16:46)
[2022-07-08] MEDS: CHOLECALCIFEROL 1,000 UNIT TABLET PO SCH (08:44)
[2022-07-08] MEDS: CLONIDINE HCL 0.1 MG TABLET PO SCH (08:45)
[2022-07-08] MEDS: DILTIAZEM HCL 30 MG TABLET PO SCH ×3 (08:45→16:47)
[2022-07-08] MEDS: CLOTRIMAZOLE 1% CREAM 30 GM TUBE TOP SCH ×2 (08:46→16:41)
[2022-07-08] MEDS: MULTIVIT, IRON, MIN NO. 8, FA TABLET PO SCH (08:46)
[2022-07-08] MEDS: ARGININE/GLUTAMINE/CALCIUM BMB 1 EACH POWD.PACK PO SCH ×2 (08:46→12:43)
[2022-07-08] MEDS ORDERED: POTASSIUM CHLORIDE 20 MEQ POWDER PACKET GT ONE (09:45)
[2022-07-08 11:43] VITALS: BP 103/54
[2022-07-08 15:09] VITALS: BP 118/73
[2022-07-08 16:47] VITALS: BP 110/58
[2022-07-08] MEDS: ESCITALOPRAM OXALATE 10 MG TABLET NG SCH (17:06)
[2022-07-08] MEDS ORDERED: MORPHINE SULFATE 4 MG/1 ML DISP.SYRIN IV ONE (19:00)
[2022-07-08] MEDS ORDERED: MORPHINE SULFATE PF IV DRIP 100 MG in IV DEXTROSE 5% 96 ML IV PRN (19:00)
[2022-07-08] MEDS ORDERED: ACETAMINOPHEN 650 MG SUPP.RECT RC PRN (19:00)
[2022-07-08] MEDS ORDERED: SCOPOLAMINE PATCH 1 MG/72 HRS PATCH TD SCH (19:00)
[2022-07-08] MEDS ORDERED: LORAZEPAM 2 MG/1 ML VIAL IV PRN (19:00)
[2022-07-08] MEDS ORDERED: LORAZEPAM 2 MG/1 ML VIAL IV ONE (19:00)
[2022-07-08] MEDS ORDERED: FERROUS SULFATE 300 MG/5 ML LIQUID UDC NG SCH (21:00)
[2022-07-09 01:17] LABS: LYMPHOCYTES % (MANUAL) 3 % (20-40); MONOCYTES % (MANUAL) 3 % (2-10); NEUTROPHILS % (MANUAL) 94 % (42-75)
== END 2022-07-09 01:15 | DRG 871 ==
LOC: ER 19:19 → TELE3 06-26 01:09 → TELE-TD3 06-26 01:10 → TELE3 06-28 10:04 → TELE-TD3 07-07 14:34 → MEDSURG3 07-08 19:03
PROVIDERS: ADMIT Internal Medicine; ATTEND Internal Medicine
PROC: 30233N1 Transfusion of Nonautologous Red Blood Cells into Peripheral Vein, Percutaneous Approach (ICD-10-PCS; principal; 2022-06-30)
PROC: 05HD33Z Insertion of Infusion Device into Right Cephalic Vein, Percutaneous Approach (ICD-10-PCS; 2022-07-05)
DX: A41.9 Sepsis, unspecified organism (principal); E43 Unspecified severe protein-calorie malnutrition; J69.0 Pneumonitis due to inhalation of food and vomit; J96.91 Respiratory failure, unspecified with hypoxia; N39.0 Urinary tract infection, site not specified; D62 Acute posthemorrhagic anemia; F03.94 Unspecified dementia, unspecified severity, with anxiety; I69.354 Hemiplegia and hemiparesis following cerebral infarction affecting left non-dominant side; Z66 Do not resuscitate; Z51.5 Encounter for palliative care; I48.91 Unspecified atrial fibrillation; Z68.25 Body mass index [BMI] 25.0-25.9, adult; R65.20 Severe sepsis without septic shock; Z20.822 Contact with and (suspected) exposure to COVID-19; E61.1 Iron deficiency; R13.10 Dysphagia, unspecified; Z53.09 Procedure and treatment not carried out because of other contraindication; E87.6 Hypokalemia; Z79.899 Other long term (current) drug therapy; N48.89 Other specified disorders of penis; R79.1 Abnormal coagulation profile; F09 Unspecified mental disorder due to known physiological condition; I11.0 Hypertensive heart disease with heart failure; I50.9 Heart failure, unspecified; F41.9 Anxiety disorder, unspecified; F32.A Depression, unspecified; D72.823 Leukemoid reaction
CPT/HCPCS: 36415; 36600; 70030-TC; 71045; 76705; 83550; 83605; 83735; 84100; 84443; 84484; 85025; 85610; 85730; 86850; 86900; 86901; 86920; 87040; 93005; 94640; 94760; A4663; A6209; A6213; C1758; G0378; J0696; J1644; J1650; J1940; J2060; J2270; J2274; J2405; J2543; J2916; J3370; J3475; J3480; J3490; J3535; J3590; J7040; J7050; J7614; P9016